=== PATIENT | female | born 1945 | race Caucasian/White ===

== ENCOUNTER 2017-12-17 10:20 | Emergency (ER) | payer OTHER ==
[~2017-12-17] VITALS: Ht 157.5 cm; Wt 82.1 kg
[~2017-12-17 10:20] MED LIST: CALTRATE PLUS1 EACH PO; CIPRO500 MG PO; FEMARA2.5 MG PO; FENOFIBRATE54 M1 PO; FINACEA 15% GEL50 GM TP; FLAGYL500 MG PO; GLUCOPHAGE850 MG PO; GLUCOSAMINE-CH1 EA27 PO; LIPITOR40 MG PO; LISINOPRIL5 MG PO; METRONIDAZOLE45 G1 TP; OSTEO BI-FLEX1 EAC1 PO; PERCOCET 5/31 TABLET PO; PRAVASTATIN SOD80 MG PO; VITAMIN D1000 INTUN PO; ZOFRAN4 MG PO
[2017-12-17 10:40] LABS: HEMATOCRIT 41.3 % (36.0-46.0); HEMOGLOBIN 14.3 G/DL (11.9-15.5); MCH 30.6 PG (29.0-34.0); MCHC 34.6 G/DL (30.0-36.0); MCV 88.2 FL (83-99); RBC DIS.WIDTH-CV 12.6 % (11.8-14.6); RBC DIS.WIDTH-SD 40.8 % (39-53); RED BLOOD COUNT 4.68 M/uL (3.80-5.20)
[2017-12-17 10:51] LABS: CHLORIDE 110 mEq/L (99-109); POTASSIUM 4.4 mEq/L (3.7-5.4); SODIUM 142 mEq/L (136-147)
[2017-12-17 10:54] LABS: GLUCOSE 127 mg/dL (70-99); TOTAL PROTEIN 6.4 g/dL (6.4-8.3)
[2017-12-17 10:56] LABS: TOTAL BILIRUBIN 0.6 mg/dL (0.0-1.0)
[2017-12-17 10:57] LABS: ALKALINE PHOSPHATASE 62 IU/L (3-129); CREATININE 1.1 mg/dL (0.6-1.3); GFR ESTIMATE (CALCULATED) 52 mL/min/
[2017-12-17 10:58] LABS: UREA NITROGEN (BUN) 18 mg/dL (9-23)
[2017-12-17 10:59] LABS: AST (GOT) 24 IU/L (2-34)
[2017-12-17 11:00] LABS: ALT (GPT) 35 IU/L (3-49)
[2017-12-17 11:25] LABS: APPEARANCE CLEAR ((CLEAR)); BILIRUBIN NEGATIVE; BLOOD NEGATIVE; COLOR YELLOW ((YELLOW)); GLUCOSE (STRIP) NEGATIVE; KETONES NEGATIVE; LEUKOCYTES NEGATIVE; NITRITE NEGATIVE; PROTEIN (STRIP) NEGATIVE; SPECIFIC GRAVITY 1.023 (1.000-1.030); UCUL ADDED? NO; UROBILINOGEN 0.2 MG/DL (0.2-1.0)
[2017-12-17 11:45] LABS: PLATELET COUNT 251 K/uL (156-360)
[2017-12-17] MEDS ORDERED: MOBIC7.5 MG PO (12:15)
[2017-12-17] MEDS ORDERED: VALIUM2 MG PO (12:15)
[2017-12-17 12:53] VITALS: BP 105/67
== END 2017-12-17 12:55 | disposition home or self-care (01) ==
LOC: EME 10:20
DX: R07.89 Other chest pain (principal); I10 Essential (primary) hypertension; E78.5 Hyperlipidemia, unspecified; E11.9 Type 2 diabetes mellitus without complications; Z79.84 Long term (current) use of oral hypoglycemic drugs; Z90.49 Acquired absence of other specified parts of digestive tract; Z87.442 Personal history of urinary calculi; Z85.3 Personal history of malignant neoplasm of breast
CPT/HCPCS: 71046; 80053; 81003; 85027; 85379; 99281; 99284